=== PATIENT | female | born 1950 ===

== ENCOUNTER 2018-09-30 16:35 | Emergency (ER) | payer MEDICARE ==
[2018-09-30 16:53] VITALS: BP 142/74
--- NOTE | 2018-09-30 17:14 | UC ---
Throat Pain/Nasal Mike HPI - HPI Summary HPI Summary: 68-year-old female with a mildly sore throat over the past few days and today she had laryngitis. She has been traveling in [place] for 2 weeks and recently arrived via the airplane. - History of Current Complaint Chief Complaint: UCRespiratory Stated Complaint: SORE THROAT Time Seen by Provider: 09/30/18 16:49 Hx Obtained From: Patient Hx Last Menstrual Period: post menopause ?: No Onset/Duration: Gradual Onset Severity: Mild Pain Intensity: 3 Cough: None Associated Signs & Symptoms: Positive: Negative - Allergies/Home Medications Allergies/Adverse Reactions: Allergies Allergy/AdvReac Type Severity Reaction Status Date / Time No Known Allergies Allergy Verified 09/30/18 16:53 Home Medications: Home Medications Hydrochlorothiazide TAB* [Hydrodiuril TAB*] 09/30/18 [History] Losartan TAB* [Cozaar TAB*] 09/30/18 [History] Multivitamin [Multivitamins] 1 cap PO 09/30/18 [History] PMH/Surg Hx/FS Hx/Imm Hx Previously Healthy: Yes Cardiovascular History: Hypertension Cancer History: Colorectal Cancer - Surgical History Surgical History: Yes Surgery Procedure, Year, and Place: 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 Is Patient Immunocompromised?: No Physical Exam Triage Information Reviewed: Yes Appearance: Well-Appearing, No Pain Distress, Well-Nourished Vital Signs: Initial Vital Signs Temp 98.0 F 09/30/18 16:45 Pulse 100 09/30/18 16:45 Resp 16 09/30/18 16:45 BP 142/74 09/30/18 16:45 Pulse Ox 98 09/30/18 16:45 Vital Signs Reviewed: Yes Eyes: Positive: Conjunctiva Clear ENT: Positive: Pharynx normal, TMs normal, Uvula midline. Negative: Tonsillar swelling, Tonsillar exudate, Trismus, Muffled voice, Hoarse voice Neck: Positive: Supple, Nontender, No Lymphadenopathy Respiratory: Positive: Lungs clear, Normal breath sounds, No respiratory distress, No accessory muscle use Cardiovascular: Positive: RRR, No Murmur, Pulses Normal, Brisk Capillary Refill Neurological Exam: Normal Psychological Exam: Normal Skin Exam: Normal Throat Pain/Nasal Course/Dx - Course Course Of Treatment: Patient is comfortable here. Rapid strep test was negative. She is to follow- up with her primary care provider as needed. She is in the area for the weekend and then goes back home to [place] on Wednesday. - Differential Dx/Diagnosis Provider Diagnosis: Pharyngitis Discharge - Sign-Out/Discharge Documenting (check all that apply): Patient Departure All imaging exams completed and their final reports reviewed: No Studies - Discharge Plan Condition: Fair Disposition: HOME Patient Education Materials: Pharyngitis (ED) Referrals: No Primary Care Phys,NOPCP [Primary Care Provider] - [facility] [Outside] Additional Instructions: Increase fluids, warm saltwater gargles, throat lozenges as needed. Follow-up with your primary care provider in 4-5 days if no improvement or if worsening symptoms. - Billing Disposition and Condition Condition: FAIR Disposition: Home
== END 2018-09-30 17:38 | disposition home or self-care (01) ==
LOC: UCEAST 16:35
DX: J02.9 Acute pharyngitis, unspecified (principal); I10 Essential (primary) hypertension; Z85.038 Personal history of other malignant neoplasm of large intestine; Z85.048 Personal history of other malignant neoplasm of rectum, rectosigmoid junction, and anus
CPT/HCPCS: 87651; 99201; G0463